=== PATIENT | female | born 1990 | race Caucasian/White ===

== ENCOUNTER 2016-06-28 18:47 | Emergency (ER) | payer BC ==
[2016-06-28 18:58] VITALS: BP 125/76; PULSE 86; RESP 20; TEMP 98.3
[2016-06-28] MEDS ORDERED: Acetaminophen-Codeine 300-30mg TAB PO STA (19:40)
--- NOTE | 2016-06-28 19:44 | ED ---
Skin/Abscess/FB HPI - General Chief complaint: Skin/Abscess/Foreign Body Stated complaint: arm pain Time Seen by Provider: 06/28/16 19:08 Source: patient, RN notes reviewed Mode of arrival: ambulatory Limitations: no limitations - History of Present Illness Initial comments: Patient is a 25-year-old female presents to the emergency room for evaluation of left arm hematoma. Patient states that she donated plasma on Monday. Patient states while donating plasma her arm to begin to swell with bruising. Patient states the swelling has gone down since. Patient states she now has significant bruising at the injection site area. Patient states she is only able to hold her elbow at 90 and has significant pain while extending her elbow with pain that radiates into her fingers. Patient also states he has tingling in her fingers of her left arm. Patient states she's never donated plasma before. Patient states she has been taking ibuprofen with no relief of symptoms. - Related Data Home Medications Medication Instructions Recorded Confirmed Escitalopram [Lexapro] 10 mg PO DAILY 06/28/16 06/28/16 Allergies Allergy/AdvReac Type Severity Reaction Status Date / Time sulfamethoxazole AdvReac Nausea & Verified 06/28/16 19:41 [From Bactrim] Vomiting trimethoprim [From Bactrim] AdvReac Nausea & Verified 06/28/16 19:41 Vomiting Review of Systems ROS Statement: Those systems with pertinent positive or pertinent negative responses have been documented in the HPI. ROS Other: All systems not noted in ROS Statement are negative. Past Medical History Past Medical History: No Reported History History of Any Multi-Drug Resistant Organisms: None Reported Past Surgical History: No Surgical Hx Reported Past Psychological History: No Psychological Hx Reported Smoking Status: Never smoker Past Alcohol Use History: Occasional Past Drug Use History: None Reported General Exam - General Exam Comments Initial Comments: Sitting in exam room, no acute distress. Limitations: no limitations General appearance: alert, in no apparent distress Head exam: Present: atraumatic, normocephalic, normal inspection Eye exam: Present: normal appearance ENT exam: Present: normal exam Neck exam: Present: normal inspection Respiratory exam: Absent: respiratory distress Left Elbow exam: Present: tenderness, ecchymosis (hematoma over left antecubital area ) Neuro motor exam: Present: wrist extension intact, thumb opposition intact, thumb IP flexion intact, thumb adduction intact, fingers 2-5 abduction intact Vascular: Present: normal capillary refill (Capillary refill less than 2 seconds ), radial pulse (2+), ulnar pulse (2+) Back exam: Present: normal inspection Neurological exam: Present: alert, oriented X3, CN II-XII intact, normal gait Psychiatric exam: Present: normal affect, normal mood Skin exam: Present: warm, dry Course Vital Signs 06/28/16 18:55 Temperature 98.3 F Pulse Rate 86 Respiratory 20 Rate Blood Pressure 125/76 O2 Sat by Pulse 100 Oximetry Medical Decision Making - Medical Decision Making Patient's 25-year-old female since emergency room for evaluation of left arm hematoma. Ultrasound ordered and no clots were noted. Results discussed with patient. Advised patient take Tylenol or Motrin as needed for pain and to apply warm compresses. Advised patient to follow-up with primary care provider for reevaluation. Patient states she understands everything that was discussed with her. Return parameters discussed. Case discussed with Dr. Collins. - Radiology Data Radiology results: report reviewed, image reviewed Disposition Clinical Impression: Hematoma of arm Disposition: HOME SELF-CARE Condition: Good Instructions: Hematoma (ED) Additional Instructions: Warm compresses. Take Tylenol or Motrin as needed for pain. Please follow up with primary care provider in 24-48 hours for reevaluation. If any new symptom arises or symptoms worsen, return to ER as soon as possible. Referrals: Adarsh Sneed DO [Primary Care Provider] - 1-2 days Time of Disposition: 21:07
--- NOTE | 2016-06-28 20:44 | US ---
EXAMINATION TYPE: US venous doppler duplex UE LT DATE OF EXAM: 06/28/2016 8:33 PM COMPARISON: NONE CLINICAL HISTORY: Pain. Patient donated plasma on 06/25/2016. Left arm pain and bruising SIDE PERFORMED: Left Left Arm: Negative for DVT IMPRESSION: Normal exam. No evidence of deep venous thrombosis in the left arm.
[2016-06-28] MEDS ORDERED: ACET/COD 300 MG/30 MG STARTER PACK 6 TAB BTL PO STA (21:10)
== END 2016-06-28 21:26 | disposition home or self-care (01) ==
LOC: EC 18:47
DX: S40.022A Contusion of left upper arm, initial encounter (principal); Z79.899 Other long term (current) drug therapy; Z88.2 Allergy status to sulfonamides; W26.8XXA Contact with other sharp object(s), not elsewhere classified, initial encounter
CPT/HCPCS: 99283

== ENCOUNTER 2016-10-18 10:18 | Emergency (ER) | payer BC ==
[2016-10-18] MEDS ORDERED: ACETAMINOPHEN TAB 500 MG TAB PO STA (10:48)
--- NOTE | 2016-10-18 10:48 | ED ---
Abdominal Pain HPI - General Chief Complaint: Abdominal Pain Stated Complaint: Cramping, Time Seen by Provider: 10/18/16 10:35 Source: patient Mode of arrival: ambulatory Limitations: no limitations - History of Present Illness Initial Comments: His old female complaining about abdominal pain/right lower quadrant and left lower quadrant is also complaining about pain in the pelvic area. Her last menstrual period was 5. His 20 straight posterior periods are regular, she did a test at home it was negative. She said pain in the lower abdomen is excruciating and she missed work's. She denies any vaginal discharge no spotting no passing clots at this point. And she has no history of abdominal surgery in the past pain at this point is 6/10, devious system is unremarkable otherwise - Related Data Home Medications Medication Instructions Recorded Confirmed Escitalopram [Lexapro] 10 mg PO DAILY 06/28/16 10/18/16 Melatonin 10 mg PO HS PRN 10/18/16 10/18/16 valACYclovir HCL [Valtrex] 1,000 mg PO DAILY PRN 10/18/16 10/18/16 Previous Rx's Medication Instructions Recorded Acetaminophen-Codeine 300-30mg 2 tab PO Q6H PRN #20 tablet 10/18/16 [Tylenol #3] Allergies Allergy/AdvReac Type Severity Reaction Status Date / Time sulfamethoxazole AdvReac Nausea & Verified 10/18/16 13:13 [From Bactrim] Vomiting trimethoprim [From Bactrim] AdvReac Nausea & Verified 10/18/16 13:13 Vomiting Review of Systems ROS Statement: Those systems with pertinent positive or pertinent negative responses have been documented in the HPI. ROS Other: All systems not noted in ROS Statement are negative. Past Medical History Past Medical History: No Reported History History of Any Multi-Drug Resistant Organisms: None Reported Past Surgical History: No Surgical Hx Reported Past Psychological History: No Psychological Hx Reported Smoking Status: Never smoker Past Alcohol Use History: Occasional Past Drug Use History: None Reported General Exam - General Exam Comments Initial Comments: General: The patient is awake and alert, in mild distress Skin: Skin is warm and dry and no rashes or lesions are noted. Eye: Pupils are equal, round and reactive to light, extra-ocular movements are intact; there is normal conjunctiva bilaterally. Ears, nose, mouth and throat: There are moist mucous membranes and no oral lesions. Neck: The neck is supple, there is no tenderness or JVD. Cardiovascular: There is a regular rate and rhythm. No murmur, rub or gallop is appreciated. Respiratory: To auscultation bilateral, no wheezing no rhonchi no distress respiratory song noticed Gastrointestinal: She is quite tender in right lower quadrant as well as left Lower quadrant and suprapubic area. Back: There is no tenderness to palpation in the midline. There is no obvious deformity. Musculoskeletal: Normal ROM, no tenderness, There is no pedal edema. There is no calf tenderness or swelling. No cords were appreciated. Neurological: CN II-XII intact, Cranial nerves III through XII are intact. There are no obvious motor or sensory deficits. Coordination appears grossly intact. Speech is normal. Psychiatric: Cooperative, appropriate mood & affect, normal judgment. Limitations: no limitations Course Vital Signs 10/18/16 10/18/16 10:31 13:15 Temperature 98.0 F 97.3 F L Pulse Rate 89 64 Respiratory 20 15 Rate Blood Pressure 115/74 110/66 O2 Sat by Pulse 99 100 Oximetry - Reevaluation(s) Reevaluation #1: 10/18/16 14:12 She is reassessed O 1400 she feels better and wants to eat and wants to go home and she agrees to see Dr. Aranda. I will come back if symptoms get worse Medical Decision Making - Lab Data Result diagrams: 10/18/16 11:05 10/18/16 11:05 Lab Results 10/18/16 10/18/16 10/18/16 Range/Units 11:05 11:05 12:33 WBC 7.4 (3.8-10.6) k/uL RBC 4.89 (3.80-5.40) m/uL Hgb 14.8 (11.4-16.0) gm/dL Hct 43.3 (34.0-46.0) % MCV 88.6 (80.0-100.0) fL MCH 30.2 (25.0-35.0) pg MCHC 34.1 (31.0-37.0) g/dL RDW 12.3 (11.5-15.5) % Plt Count 258 (150-450) k/uL Neutrophils % 73 % Lymphocytes % 20 % Monocytes % 5 % Eosinophils % 2 % Basophils % 0 % Neutrophils # 5.4 (1.3-7.7) k/uL Lymphocytes # 1.5 (1.0-4.8) k/uL Monocytes # 0.3 (0-1.0) k/uL Eosinophils # 0.1 (0-0.7) k/uL Basophils # 0.0 (0-0.2) k/uL Sodium 142 (137-145) mmol/L Potassium 4.2 (3.5-5.1) mmol/L Chloride 106 (98-107) mmol/L Carbon Dioxide 28 (22-30) mmol/L Anion Gap 8 mmol/L BUN 10 (7-17) mg/dL Creatinine 0.79 (0.52-1.04) mg/dL Est GFR (MDRD) Af Amer >60 (>60 ml/min/1.73 sqM) Est GFR (MDRD) Non-Af >60 (>60 ml/min/1.73 sqM) Glucose 73 L (74-99) mg/dL Calcium 9.4 (8.4-10.2) mg/dL Total Bilirubin 0.4 (0.2-1.3) mg/dL AST 18 (14-36) U/L ALT 21 (9-52) U/L Alkaline Phosphatase 69 (38-126) U/L C-Reactive Protein 19.0 H (<10.0) mg/L Total Protein 7.3 (6.3-8.2) g/dL Albumin 4.4 (3.5-5.0) g/dL Amylase 34 (30-110) U/L Lipase 49 (23-300) U/L HCG, Quant <2.4 mIU/mL Urine Color Yellow Urine Appearance Clear (Clear) Urine pH 6.5 (5.0-8.0) Ur Specific [place] 1.014 (1.001-1.035) Urine Protein Negative (Negative) Urine Glucose (UA) Negative (Negative) Urine Ketones Negative (Negative) Urine Blood Negative (Negative) Urine Nitrite Negative (Negative) Urine Bilirubin Negative (Negative) Urine Urobilinogen <2.0 (<2.0) mg/dL Ur Leukocyte Esterase Negative (Negative) Disposition Clinical Impression: Ovarian cyst, Abdominal pain Disposition: HOME SELF-CARE Instructions: Abdominal Pain (ED) Prescriptions: Acetaminophen-Codeine 300-30mg [Tylenol #3] 2 tab PO Q6H PRN #20 tablet PRN Reason: Pain Referrals: Adarsh Sneed DO [Primary Care Provider] - 1-2 days Martha Aranda DO [Doctor of Osteopathic Medicine] - 1-2 days
[2016-10-18 11:19] LABS: Basophils % (A) 0 %; CH 29.3; CHCM 33.2; Eosinophils # (A) 0.1 k/uL (0-0.7); Eosinophils % (A) 2 %; HCT 43.3 % (34.0-46.0); HGB 14.8 gm/dL (11.4-16.0); Luc # (Auto) 0.09; Luc % (Auto) 1; Lymphocytes # (A) 1.5 k/uL (1.0-4.8); Lymphocytes % (A) 20 %; MCH 30.2 pg (25.0-35.0); MCHC 34.1 g/dL (31.0-37.0); MCV 88.6 fL (80.0-100.0); Mean Platelet Volume 7.8; Monocytes # (A) 0.3 k/uL (0-1.0); Monocytes % (A) 5 %; Neutrophils # (A) 5.4 k/uL (1.3-7.7); Neutrophils % (A) 73 %; RBC 4.89 m/uL (3.80-5.40); RDW 12.3 % (11.5-15.5); WBC 7.4 k/uL (3.8-10.6); WBC (Perox) 7.01
[2016-10-18 11:40] LABS: ALT 21 U/L (9-52); AST 18 U/L (14-36); Alkaline Phosphatase 69 U/L (38-126); Amylase 34 U/L (30-110); Anion Gap 8 mmol/L; Blood Urea Nitrogen 10 mg/dL (7-17); Calcium 9.4 mg/dL (8.4-10.2); Carbon Dioxide 28 mmol/L (22-30); Chloride 106 mmol/L (98-107); Glucose 73 mg/dL (74-99); Non-African American GFR(MDRD) >60 (>60 ml/min/1.73 sqM); Potassium 4.2 mmol/L (3.5-5.1); Sodium 142 mmol/L (137-145); Total Bilirubin 0.4 mg/dL (0.2-1.3); Total Protein 7.3 g/dL (6.3-8.2)
[2016-10-18 11:55] LABS: HCG,Quantitative Serum <2.4 mIU/mL
[2016-10-18 12:45] LABS: Appearance,Urine Clear (Clear); Bilirubin,Urine Negative (Negative); Glucose,Urine (UA) Negative (Negative); Ketones,Urine Negative (Negative); Leukocyte Esterase,Urine Negative (Negative); Nitrite,Urine Negative (Negative); PH, Urine 6.5 (5.0-8.0); Protein,Urine Negative (Negative); Specific Gravity,Urine 1.014 (1.001-1.035); UA Billing (MACRO vs. MICRO) CHEM; Urobilinogen,Urine <2.0 mg/dL (<2.0)
--- NOTE | 2016-10-18 13:03 | US ---
EXAMINATION TYPE: US abdomen APPY DATE OF EXAM: 10/18/2016 COMPARISON: NONE CLINICAL HISTORY: Pain. RLQ pain radiating to back x 3 days, diarrhea today APPENDIX not fully seen by US AP Diameter (normal < 6mm): 3.8 mm Measured outer wall to outer wall. Is the appendix seen in its entirety from the proximal cecum to distal end: No Is the appendix compressible: NA Is an appendicolith present: Appendix is not Visualized Is there inflammatory changes or free fluid present: no IMPRESSION: Nonvisualization of the appendix. Exam nondiagnostic for appendicitis.
--- NOTE | 2016-10-18 13:17 | US ---
EXAMINATION TYPE: US transvaginal DATE OF EXAM: 10/18/2016 COMPARISON: US pelvis July 20, 2013 CLINICAL HISTORY: Pain. EC Patient with RLQ pain x 3 days radiating to back, cramping and diarrhea to day; patient denies fever; irregular menses; G0. TECHNIQUE: Transvaginal (TV) Date of LMP: 08/15/2016 EXAM MEASUREMENTS: Uterus: 7.2 x 4.0 x 3.6 cm Endometrial Stripe: 1.0 cm Right Ovary: 4.2 x 3.9 x 3.5 cm Left Ovary: 2.8 x 3.1 x 2.5 cm 1. Uterus: Retroverted; multiple Nabothian cysts in CX with largest = 0.4 x 0.5 x 0.3cm 2. Endometrium: wnl; unable to correlate thickness with LMP from 08/15/2016 3. Right Ovary: multifollicular with largest as complex cyst(hemorrhagic) = 2.8 x 2.0 x 1.7cm 4. Left Ovary: multiple follicles with largest as possibly involuting cyst = 1.7 x 1.4 x 1.4cm. Spectral, color and waveform doppler imaging shows good arterial and venous flow within the ovaries ; . 5. Bilateral Adnexa: wnl 6. Posterior cul-de-sac: large cyst noted = 4.5 x 2.7 x 2.6cm (possible peritoneal inclusion cyst); fluid area = 2.9 x 2.5 x 0.5cm noted in CDS with low level, mobile, internal echoes and seen adjacent to large cyst Uterus is retroverted in shape and heterogeneous in appearance. Some small nabothian cysts are scatte red throughout the cervix. Endometrium measures up to 10 mm which is within normal limits. Small mode rate free fluid is seen in the pelvis that is nonsimple towards the end of study. In addition there i s a 4.5 cm oval thin-walled cyst in the pelvic cul-de-sac uncertain etiology as appears to be separat e from the ovaries. Both ovaries are present. Within the right ovary periphery there is 2.7 cm homogeneous hyperechoic le triston could reflect hemorrhagic cyst. Peripheral follicles are scattered throughout both ovaries. IMPRESSION: Right ovary is slightly larger in size. There is 2.7 cm nonsimple cyst right ovary favori ng hemorrhagic cyst. There is stable thin-walled 4.5 cm cyst in the pelvis of uncertain etiology but favored benign. Some nonsimple fluid in the pelvis could reflect blood products, differential would i nclude recent ovarian cyst rupture as possible etiology.
[2016-10-18 14:11] VITALS: BP 106/68; PULSE 63; RESP 16; TEMP 98.7
== END 2016-10-18 14:30 | disposition home or self-care (01) ==
LOC: EC 10:18
DX: N83.201 Unspecified ovarian cyst, right side (principal); R10.32 Left lower quadrant pain; R10.2 Pelvic and perineal pain; Z79.899 Other long term (current) drug therapy; Z88.2 Allergy status to sulfonamides
CPT/HCPCS: 36415; 76705; 76830; 80053; 81003; 82150; 83690; 84702; 85025; 86140; 93975; 99284

== ENCOUNTER → 2020-01-02 | Outpatient (CLI) | payer SELFPAY | END | disposition home or self-care (01) | LOC: LABWHC1 09:51 | PROVIDERS: ATTEND Pediatrics Pediatric Infectious Diseases | DX: Z03.818 Encounter for observation for suspected exposure to other biological agents ruled out (principal) | CPT/HCPCS: U0003; C9803 ==